=== PATIENT | male | born 1960 | race Caucasian/White ===

== ENCOUNTER → 2017-05-20 | Outpatient (CLI) | payer OTHER | END | disposition home or self-care (01) | LOC: RAD 10:07 | DX: M46.04 Spinal enthesopathy, thoracic region (principal); M41.84 Other forms of scoliosis, thoracic region; M47.896 Other spondylosis, lumbar region; M48.061 Spinal stenosis, lumbar region without neurogenic claudication | CPT/HCPCS: 72072; 72100 ==

== ENCOUNTER 2021-09-15 23:21 | Emergency (ER) | payer OTHER ==
[~2021-09-15] VITALS: Ht 176.5 cm; Wt 88.6 kg
[2021-09-15 23:30] VITALS: BP 186/100
[2021-09-15] MEDS ORDERED: ASPIRIN 325 MG TABLET PO ONE (23:45)
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
== END 2021-09-15 23:55 ==
LOC: ER 23:21
DX: S09.93XA Unspecified injury of face, initial encounter (principal); F17.200 Nicotine dependence, unspecified, uncomplicated; G89.29 Other chronic pain; Y08.89XA Assault by other specified means, initial encounter; Y93.89 Activity, other specified; Y92.89 Other specified places as the place of occurrence of the external cause; Y99.8 Other external cause status
CPT/HCPCS: 99283